=== PATIENT | male | born 1975 | race Caucasian/White ===

== ENCOUNTER 2022-02-25 01:29 | Emergency (ER) | payer SELFPAY ==
[2022-02-25 01:34] VITALS: BP 126/89; PULSE 95; RESP 16; TEMP 98.8; BMI 26.6
[2022-02-25] MEDS ORDERED: AZITHROMYCIN 500 MG TABLET PO ONE (02:08)
[2022-02-25] MEDS ORDERED: AZITHROMYCIN 500 MG TABLET ONE (02:10)
== END 2022-02-25 02:19 | disposition home or self-care (01) ==
LOC: FER 01:29
DX: J20.9 Acute bronchitis, unspecified (principal)
CPT/HCPCS: 99283-25